=== PATIENT | female | born 1995 | race Caucasian/White ===

== ENCOUNTER → 2019-02-17 | Outpatient (CLI) | payer OTHER ==
--- NOTE | 2019-02-17 13:52 | US ---
EXAMINATION TYPE: Transabdominal DATE OF EXAM: 02/17/2019 1:35 PM COMPARISON: NONE CLINICAL HISTORY: R02.0 Threatened miscarriage. trace of blood in urine EXAM PERFORMED: Transabdominal (TA) EXAM MEASUREMENTS: GESTATIONAL AGE / DATING Physician Established: Not yet established Dates by LMP: (8 weeks/5 days) EDC: 09/24/19 Dates by First Scan: No previous this is first scan Dates by Current Scan for: (11 weeks/0 days) EDC: 09/08/19 MATERNAL ANATOMY Uterus: 10.4 x 5.7 x 7.7cm Right Ovary: 3.3 x 1.8 x 3.6cm Left Ovary: 2.9 x 1.6 x 4.3cm Post CDS / Adnexa: appears wnl Presence of free fluid: no Very small punctate implantation bleed is seen measuring approximately 6 mm. GESTATION / SURVEY CRL: 4.1cm (11 weeks/0 days) Yolk Sac (normal less than 6mm): 0.3cm Heart Rate: 172 bpm Rhythm: Normal IUP: Light IUP Date of LMP: 12/18/18 Beta HcG (if available): Not available at this time Single live IUP 11wks/0days with MARY of 09/08/19 IMPRESSION: Single live intrauterine with a current sonographic age of 11 weeks and 0 days and estimated date of delivery of 09/08/2019, discordant with menstrual age. Punctate 6 mm implantation bleed.
== END | disposition home or self-care (01) ==
LOC: RADUSWWP 13:11
PROVIDERS: ATTEND Family Medicine
DX: O20.0 Threatened abortion (principal); Z3A.11 11 weeks gestation of pregnancy
CPT/HCPCS: 76801